=== PATIENT | male | born 1980 | race Caucasian/White ===

== ENCOUNTER 2023-10-01 12:06 | Outpatient (CLI) | payer OTHER, SELFPAY ==
--- NOTE | 2023-10-01 12:14 | MR_ITS ---
WS: [id number] MRI LEFT SHOULDER HISTORY: INJURY W/DECREASED ABDUCTION EXTERNAL ROTATION COMPARISON: None available. TECHNIQUE: Multiplanar sequences of the shoulder joint are submitted. Very mild AC joint arthritis and hypertrophy. Mild downsloping of the acromion. No subacromial imping ement. No os acromion. Normal biceps tendon. Normal position of the humeral head with respect to the glenoid. No rotator cuff muscle atrophy or ed francisco javier. No rotator cuff tear. No subacromial subdeltoid bursal fluid. Small amount of fluid in the subsc apularis recess. Abnormal signal in the superior labrum. Abnormal signal extends into the anterior [place]. IMPRESSION: 1. Superior anterior labral tear. 2. No rotator cuff tear. 3. Mild AC joint arthritis.
--- NOTE | 2023-10-01 12:33 | MR_ITS ---
WS: [id number] MRI CERVICAL SPINE NONCONTRAST HISTORY: CERVICAL RADICULOPATHY COMPARISON: None available. Technique: Multiplanar, multisequence noncontrast imaging of the cervical spine. Straightening of the normal cervical lordosis. Retrolisthesis of C5 on C6 by 3 mm. There is a small a mount of marrow edema in T1. No fractures. Disc bases are mildly narrowed, most significant narrowing at C6-7. Signal within the cord is normal. Signal within the cervical cord is normal. Visualized posterior fossa is unremarkable. Craniocervical junction, C1 and C2 relationship, odontoid process and soft tissues are normal. C2-C3: Mild osteophytic ridging. Mild facet arthritis. Mild foraminal narrowing. C3-C4: No disc protrusion. Mild LEFT foraminal stenosis due to osteophyte and facet disease. C4-C5: Tiny central disc protrusion with mild osteophytic ridging and annular disc bulging. Very mild encroachment upon the central thecal sac with mild LEFT foraminal stenosis. C5-C6: Osteophytic ridging with a broad-based central disc protrusion extending just greatest to the RIGHT. Effacement of RIGHT lateral CSF with contact on the ventral cervical cord but no displacement. Mild bilateral facet arthritis and foraminal osteophytes. Mild to moderate central and bilateral for aminal stenosis. C6-C7: Osteophytic ridging with a central disc protrusion which extends just caudad to the disc space . There is disc contacting the ventral cervical cord. Moderate disc osteophyte complexes in the richar santiago. Moderate central and bilateral foraminal stenosis. Slightly greater stenosis on the RIGHT. C7-T1: Small foraminal osteophytes. Paraspinal soft tissue are normal. Small benign-appearing cervical chain lymph nodes. IMPRESSION: 1. Degenerative disc disease and osteophytosis throughout the cervical spine. 2. C6-7: Moderate central and bilateral foraminal stenosis, slightly greater stenosis RIGHT foramen. Stenosis due to combination of C6 retrolisthesis with disc and osteophyte disease. 3. C5-6: Mild mild to moderate central with bilateral foraminal stenosis. 4. Mild bilateral foraminal stenosis at C2-3 and on the LEFT at C3-4. 5. C4-5: Mild central and LEFT foraminal stenosis.
== END 2023-10-01 12:07 | disposition home or self-care (01) ==
LOC: RAD 12:09
PROVIDERS: PCP Family Medicine; Visit Provider Family Medicine
DX: M19.012 Primary osteoarthritis, left shoulder (principal); M50.30 Other cervical disc degeneration, unspecified cervical region; M47.812 Spondylosis without myelopathy or radiculopathy, cervical region; M25.78 Osteophyte, vertebrae
CPT/HCPCS: 72141; 73221

== ENCOUNTER 2023-10-19 08:27 | Outpatient (CLI) | payer OTHER, SELFPAY ==
--- NOTE | 2023-10-19 08:33 | MR_ITS ---
WS: [id number] MRI LUMBAR SPINE NONCONTRAST TECHNIQUE: Sagittal T1, T2 and STIR imaging. Axial T1 and T2 imaging. CLINICAL INFORMATION: PAIN/ABNORMAL LUMBAR SPINE XRAY COMPARISON: None. FINDINGS: Mild lumbar curve. No acute compression. Slight retrolisthesis L2 on L3 and L3 on L4. T12-L1: Tiny shallow central protrusion. Spinal canal and foramen are patent. Mild facet arthropathy. L1-L2: Mild annular bulging. Slight effacement of the ventral thecal sac. Mild facet arthropathy. Spi nal canal and foramen are patent. L2-L3: Shallow central protrusion. Moderate central canal stenosis with impingement subarticular rece ss bilaterally. Tiny annular fissure. Moderate facet arthropathy. Moderate RIGHT and mild LEFT forami nal narrowing. L3-L4: Mild annular bulging. Slight impingement RIGHT subarticular recess and traversing RIGHT L4 ner ve root. Moderate RIGHT and mild LEFT foraminal narrowing. Mild central canal stenosis. L4-L5: Mild annular bulging. Narrowing of the RIGHT subarticular recess. Mild central canal stenosis. Moderate RIGHT and mild LEFT foraminal narrowing. Moderate facet arthropathy. L5-S1: Disc bulging with impingement on the LEFT subarticular recess and traversing LEFT S1 nerve wu t. Mild facet arthropathy. Severe LEFT and mild to moderate RIGHT foraminal narrowing. LEFT foraminal protrusion. Visualized pelvic bony structures: Normal. Paravertebral soft tissues: Normal. Bilateral renal cysts. IMPRESSION: 1. Mild lumbar curve. No acute compression. 2. Moderate central canal stenosis L2-3 due to disc bulging in combination with facet arthropathy an d ligamentum flavum hypertrophy. Moderate RIGHT foraminal narrowing. 3. Mild central canal stenosis L3-L4 and L4-L5 with impingement RIGHT subarticular recess. Moderate RIGHT L3-L4 and L4-L5 foraminal narrowing. 4. Severe LEFT L5-S1 foraminal narrowing. Impingement exiting LEFT L5 nerve root with a LEFT foramin al protrusion.
== END 2023-10-19 08:28 | disposition home or self-care (01) ==
LOC: RAD 08:28
PROVIDERS: PCP Family Medicine; Visit Provider Nurse Practitioner Family
DX: M54.50 Low back pain, unspecified (principal); M48.061 Spinal stenosis, lumbar region without neurogenic claudication; M48.07 Spinal stenosis, lumbosacral region
CPT/HCPCS: 72148

== ENCOUNTER → 2023-12-23 13:16 | Outpatient (BNVA) | payer OTHER, SELFPAY | PROVIDERS: PCP Family Medicine; Visit Provider Specialist | DX: G56.21 Lesion of ulnar nerve, right upper limb (principal) | CPT/HCPCS: 95886; 95911 ==

== ENCOUNTER → 2024-07-13 08:44 | Outpatient (BNVA) | payer OTHER, SELFPAY | PROVIDERS: PCP Family Medicine; Referring Provider Family Medicine; Visit Provider Specialist | DX: G43.711 Chronic migraine without aura, intractable, with status migrainosus (principal); M47.12 Other spondylosis with myelopathy, cervical region; M50.30 Other cervical disc degeneration, unspecified cervical region; G24.3 Spasmodic torticollis | CPT/HCPCS: 99204 ==

== ENCOUNTER → 2024-08-21 10:11 | Outpatient (BNVA) | payer OTHER, SELFPAY | PROVIDERS: PCP Family Medicine; Visit Provider Specialist | DX: G24.3 Spasmodic torticollis (principal); G43.711 Chronic migraine without aura, intractable, with status migrainosus; M47.12 Other spondylosis with myelopathy, cervical region; M50.30 Other cervical disc degeneration, unspecified cervical region; G31.84 Mild cognitive impairment of uncertain or unknown etiology | CPT/HCPCS: 99213 ==

== ENCOUNTER → 2024-10-31 14:49 | Outpatient (BNVA) | payer OTHER, SELFPAY | PROVIDERS: PCP Family Medicine; Visit Provider Specialist | DX: G43.711 Chronic migraine without aura, intractable, with status migrainosus (principal); G24.3 Spasmodic torticollis; M47.12 Other spondylosis with myelopathy, cervical region; M50.30 Other cervical disc degeneration, unspecified cervical region; G31.84 Mild cognitive impairment of uncertain or unknown etiology | CPT/HCPCS: 99213 ==

== ENCOUNTER → 2025-02-13 14:45 | Outpatient (BNVA) | payer OTHER, SELFPAY | PROVIDERS: PCP Family Medicine; Visit Provider Specialist | DX: G43.711 Chronic migraine without aura, intractable, with status migrainosus (principal); G24.3 Spasmodic torticollis; M47.12 Other spondylosis with myelopathy, cervical region; M50.30 Other cervical disc degeneration, unspecified cervical region; G31.84 Mild cognitive impairment of uncertain or unknown etiology | CPT/HCPCS: 99213 ==

== ENCOUNTER → 2025-03-08 09:42 | Outpatient (BNVA) | payer OTHER, SELFPAY | PROVIDERS: PCP Family Medicine; Visit Provider Specialist | DX: G43.711 Chronic migraine without aura, intractable, with status migrainosus (principal); G24.3 Spasmodic torticollis; M47.12 Other spondylosis with myelopathy, cervical region; M50.30 Other cervical disc degeneration, unspecified cervical region; G31.84 Mild cognitive impairment of uncertain or unknown etiology | CPT/HCPCS: 64615; 99212; J0585; J9999 ==

== ENCOUNTER → 2025-06-07 13:00 | Outpatient (BNVA) | payer OTHER, SELFPAY | PROVIDERS: PCP Family Medicine; Visit Provider Specialist | DX: G43.711 Chronic migraine without aura, intractable, with status migrainosus (principal) | CPT/HCPCS: 64615; J0585; J9999 ==

== ENCOUNTER 2025-06-13 07:05 | Outpatient (CLI) | payer OTHER, SELFPAY ==
--- NOTE | 2025-06-13 07:15 | MR_ITS ---
WS: [id number] MRI BRAIN WITHOUT CONTRAST HISTORY: G43.711 - Chronic migraine without aura, intractable, prior head injuries. COMPARISON: None available. TECHNIQUE: Diffusion imaging, multiplanar T1, T2 and FLAIR imaging obtained. No evidence for acute infarct or hemorrhage. Phan-white matter differentiation is normal. Normal hippocampal formations. No remote or acute infarcts or volume loss. Ventricles and extra-axial spaces are normal. No inferior displacement of cerebellar tonsils. The sella turcica and pituitary gland are unremarkable. Dural venous sinuses and [place] demonstrate no abnormality on this unenhanced studies. Paranasal sinuses: Clear. Mastoid air cells: Normal. Calvarium and scalp: Intact. MR/MR head wo con* [id number] IMPRESSION: 1. Unremarkable noncontrast MRI brain. 2. No prior infarcts or hemorrhage. 3. No significant small vessel disease.
== END 2025-06-13 07:06 | disposition home or self-care (01) ==
LOC: RAD 07:06
PROVIDERS: Absent Provider Nurse Practitioner Family; PCP Family Medicine; Visit Provider Specialist
DX: G43.711 Chronic migraine without aura, intractable, with status migrainosus (principal); S06.9XAA Unspecified intracranial injury with loss of consciousness status unknown, initial encounter; X58.XXXA Exposure to other specified factors, initial encounter
CPT/HCPCS: 70551